=== PATIENT | female | born 1985 | race Caucasian/White ===

== ENCOUNTER 2016-07-04 23:35 | Emergency (ER) | payer MEDICAID ==
[~2016-07-04] VITALS: Ht 165.1 cm; Wt 71.7 kg
[~2016-07-04 23:35] MED LIST: CEFDINIR 300MG300 MG PO; FERROUS SULFAT325 M2 PO; KEFLEX 500MG.500 MG PO; LEVAQUIN500 MG PO; MOTRIN 400MG.400 MG PO; PERCOCET 5/3251 EACH PO; PRENATAL1 TA2 PO; SEPTRA DS 800 M1 TAB PO; TESSALON PERLE100 M1 PO; [UNRECOGNIZED DRUG - REMARK] PO
--- OUTSIDE RECORDS SUMMARY | 2016-07-04 23:59 | External Medical Summary Rpt ---
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 MADY MADY T VISIT 15 MINUTES OFFICE 51066 [facility] OUTPATIEN 4 4 MADY MADY T VISIT 15 MINUTES OFFICE 41986 [facility] OUTPATIEN 4 4 MADY MADY T VISIT 5 MINUTES EMERGENCY 77793 FIDELIA SUTTON DEPT 4 4 MELODY MELODY VISIT HIGH SEVERITY& THREAT FUNCJ OFFICE 33834 [facility] OUTPATIEN 4 4 [facility]Y [facility]AD[facility] T VISIT 15 MINUTES HOSPITAL LUZ - 4 4 [facility] T OFFICE 23734 [facility] OUTPATIEN 4 4 MADY MADY T VISIT 15 MINUTES [facility]OSPITAL LUZ - 4 4 [facility] OUT[facility] INC T EMERGENCY 01928 FIDELIA SUTTON 4 4 MELODY MELODY DEPARTMEN T VISIT MODERATE SEVERITY OFFICE 90960 [facility] STILESE OUTPATIEN 4 4 MADY MADY T VISIT 40 MINUTES OFFICE 73610 [facility] T VISIT HLTH DEPT HLTH DEPT 15 TEJAS TEJAS MINUTES [facility]OSPITAL LUZ - 4 4 [facility] OUT[facility] T Emergency JUAN JOSÉ ROBERTO (ER) 3 15:40 3 15:58 [facility] LUZ - 3 3 [facility] OUTPATIEN INC T OFFICE 68448 LUZ ROLDAN 3 3 [facility] T VISIT INC 10 MINUTES EMERGENCY 04058 UDAY ROBERTO 3 3 [facility] DEPARTMEN SERVICES T VISIT LOW/MODER SEVERITY Emergency JUAN JOSÉ Sutton MD (ER) 3 19:59 3 21:50 [facility] EMERGENCY 38807 LUZ 3 3 [facility] DEPARTMEN INC T VISIT MODERATE SEVERITY EMERGENCY 78121 FIDELIA SUTTON 3 3 MELODY MELODY DEPARTMEN T VISIT HIGH/URGE NT SEVERITY HOSPITAL LUZ - 3 3 [facility] OUTPATIEN INC T Emergency JUAN JOSÉ SHARP MD (ER) 3 11:28 3 12:00 [facility] EMERGENCY 05189 ARON SHARP 3 [address] [facility] DEPARTMEN T VISIT HIGH/URGE NT SEVERITY EMERGENCY 18974 FIDELIA SUTTON 3 3 MELODY MELODY DEPARTMEN T VISIT HIGH/URGE NT SEVERITY HOSPITAL LUZ - 3 3 [facility] OUTPATIEN INC T OFFICE 11766 JOYCE COOK OUTPATIEN 3 3 STIVEN STIVEN T NEW 30 MINUTES OFFICE 57240 ISAAC GRAY OUTPATIEN 3 3 MADY MADY T VISIT 40 MINUTES OFFICE 24316 W[facility] OUTPATIEN 3 3 [facility] T VISIT DEPT DEPT 15 MINUTES OFFICE 38063 RIKY LAN OUTPATIEN 0 0 LARRY LARRY T NEW 45 MINUTES OFFICE 45355 [facility] DEPT 10 BANK ACCT MINUTES [facility] 9 9 [facility] T OFFICE 43851 [facility] T VISIT INTERNAL 15 MED MINUTES OFFICE 62742 [facility] 9 9 [facility] [place] [facility] T VISIT INTERNAL 15 MED MINUTES OFFICE 26365 DAVID AUGUSTIN, CONSULTAT [address] [facility] NEW/ESTAB N02 PATIENT 30 MIN EMERGENCY 90711 WU 8 8 CO [facility] T VISIT LIMITED/M INOR PROB EMERGENCY 76364 WU DIALLO, 8 8 [facility] T VISIT MODERATE SEVERITY HOSPITAL WU - 8 8 [facility] T OFFICE 10534 [facility] 8 8 [facility]IN[facility] T NEW 20 PSC MINUTES
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
--- OUTSIDE RECORDS SUMMARY | 2016-07-05 00:04 | External Medical Summary Rpt ---
Demographics Preferred Language [place] Leone[place] Marital Status Unknown Temple Affiliation Unknown Race Unknown Ethnic Group Unknown Author Author , Organization [employer] Address Unknown Phone Unavailable Purpose Continuity of Care Document - through 2016 Immunization No patient found.
--- OUTSIDE RECORDS SUMMARY | 2016-07-05 00:04 | External Medical Summary Rpt ---
Author Author [employer], [employer] Organization [employer] Address Unknown Phone Unavailable Results CHLAMYDIA AND GONORRHEA TESTING Observa Value Referen Units Interpr Notes Date tion ce etation Range COLLECT BLIND AIDE No No No No Nov 2 OR informa informa informa informa 2012 tion in tion in tion in tion in 9:00 AM source source source source data data data data ETHNICI WHITE, No No No No Nov 2 TY NON-HIS informa informa informa informa 2012 PANIC tion in tion in tion in tion in 9:00 AM source source source source data data data data KIT 2011-06 No No No No Nov 2 EXPIRAT -31 informa informa informa informa 2012 ION tion in tion in tion in tion in 9:00 AM DATE source source source source data data data data SYMPTOM NO No No No No Nov 2 S informa informa informa informa 2012 tion in tion in tion in tion in 9:00 AM source source source source data data data data REASON REVISIT No No No No Nov 2 FOR /ANNUAL informa informa informa informa 2012 REQUEST FAMILY tion in tion in tion in tion in 9:00 AM source source source source PLANNIN data data data data G VISIT SPECIME FEMALE No No No No Nov 2 N ENDOCER informa informa informa informa 2012 SOURCE VICAL tion in tion in tion in tion in 9:00 AM source source source source data data data data PREGNAN NO No No No No Nov 2 T informa informa informa informa 2012 tion in tion in tion in tion in 9:00 AM source source source source data data data data CHART [id number] No No No No Nov 2 NUMBER 27 informa informa informa informa 2012 tion in tion in tion in tion in 9:00 AM source source source source data data data data Chlamyd NEGATIV No No No NEGATIV Oct 2 ia E informa informa informa E 2012 trachom tion in tion in tion in RESULT= 9:00 AM atis source source source WITHIN rRNA data data data NORMAL [Presen ce] in LIMITSP Unspeci OSITIVE fied specime RESULT= n by Probe & ABNORMA target LEQUIVO NATALYA amplifi RESULT= cation method INDETER MINATEU NSATISF ACTORY RESULT= INVALID Neisser NEGATIV No No No NEGATIV Nov 23 ia E informa informa informa E 2012 gonorrh tion in tion in tion in RESULT= 9:00 AM oeae source source source WITHIN rRNA data data data NORMAL [Presen ce] in LIMITSP Unspeci OSITIVE fied specime RESULT= n by Probe & ABNORMA target LEQUIVO NATALYA amplifi RESULT= cation method INDETER MINATEU NSATISF ACTORY RESULT= INVALID THE APTIMA COMBO 2 ASSAY IS NOT INTENDE D FOR THE EVALUAT ION OF SUSPECT EDSEXUA L ABUSE OR FOR OTHER MEDICO- LEGAL INDICAT IONS. FOR THOSE PATIENT S FORWHOM A FALSE POSITIV E RESULT MAY HAVE ADVERSE PSYCHO- SOCIAL IMPACT, [facility] RET[facility]I NG.\.br \This report contain s patient informa tion that must be protect ed in accorda nce with the Health Insuran ce Portabi lity and Account ability Act. CHLAMYDIA AND GONORRHEA TESTING Observa Value Referen Units Interpr Notes Date tion ce etation Range COLLECT BLIND AIDE No No No No Nov 23 OR informa informa informa informa 2012 tion in tion in tion in tion in 9:00 AM source source source source data data data data ETHNICI WHITE, No No No No Nov 23 TY NON-HIS informa informa informa informa 2012 PANIC tion in tion in tion in tion in 9:00 AM source source source source data data data data KIT 2011-06 No No No No Nov 23 EXPIRAT -31 informa informa informa informa 2012 ION tion in tion in tion in tion in 9:00 AM DATE source source source source data data data data SYMPTOM NO No No No No Nov 23 S informa informa informa informa 2012 tion in tion in tion in tion in 9:00 AM source source source source data data data data REASON REVISIT No No No No Nov 23 FOR /ANNUAL informa informa informa informa 2012 REQUEST FAMILY tion in tion in tion in tion in 9:00 AM source source source source PLANNIN data data data data G VISIT SPECIME FEMALE No No No No Nov 2 N ENDOCER informa informa informa informa 2012 SOURCE VICAL tion in tion in tion in tion in 9:00 AM source source source source data data data data PREGNAN NO No No No No Nov 2 T informa informa informa informa 2012 tion in tion in tion in tion in 9:00 AM source source source source data data data data CHART [id number] No No No No Nov 23 NUMBER 27 informa informa informa informa 2012 tion in tion in tion in tion in 9:00 AM source source source source data data data data Chlamyd Pending No No No No Nov 23 ia informa informa informa informa 2012 trachom tion in tion in tion in tion in 9:00 AM atis source source source source rRNA data data data data [Presen ce] in Unspeci fied specime n by Probe & target amplifi cation method Neisser Pending No No No \.br\Nov 23 ia informa informa informa is 2012 gonorrh tion in tion in tion in report 9:00 AM oeae source source source contain rRNA data data data s [Presen patient ce] in Unspeci informa fied tion specime that n by must be Probe & target protect ed in amplifi accorda cation nce method with the Health Insuran ce Portabi lity and Account ability Act.
--- OUTSIDE RECORDS SUMMARY | 2016-07-05 00:04 | External Medical Summary Rpt ---
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 CHLAMYDIA AND GONORRHEA TESTING Observa Value Referen Units Interpr Notes Date tion ce etation Range COLLECT PEARL TECHNICIAN No No No No Nov 23 OR [...] source source data data data data CHART [id number] No No No No Nov 23 NUMBER [...]
--- OUTSIDE RECORDS SUMMARY | 2016-07-05 00:04 | External Medical Summary Rpt ---
Demographics Preferred Language Surinamese Marital Status Unknown Orthodox Affiliation Unknown Race Unknown Ethnic Group Unknown Author Author , Organization [employer] Address Unknown Phone Unavailable Purpose Continuity of Care Document - through 2016 Immunization No patient found.
--- NOTE | 2016-07-05 00:20 | Emergency Room Report ---
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 N Clinical Suspician of Infection? N Mental Status: 1 - Regular (Normal Baseline) Sepsis Risk:Low Sepsis Risk Have you (or family members/close friends) recently traveled outside the [place]? N If Yes, where/when: Have you had exposure to infectious disease within the past month? N TB? Other? Specify: Source patient, RN notes reviewed, old records Exam Limitations no limitations Comment atraumatic lt upper ext parasthesia - over the last 24 hrs - pt with no trauma or overuse and no other neuro sx Cardiac Chest Pain Chest pain indicative of cardiac No Timing/Duration this evening Severity moderate ALLERGIES Coded Allergies: morphine (Intermediate, I-HIVES 01/22/16) promethazine (From PHENERGAN) (Intermediate, PARNOID 01/22/16) Home Medications Reported Medications No Known Home Medications History Medical History General CAD? No Angina: No OR: No Hypertension? No Hyperlipidemia? No CHF? No DVT? No PE? No COPD? No Asthma? No Anemia? No GERD? No Gastric ulcers? No GI Bleed? No Hernia? No Thyroid Problems? No Hypothyroidism? No CVA? No Seizures? Yes Diabetes? No Renal Insuffiency? No End Stage Renal Disease? No UTI? No Stones? No BPH? No GB Disease: Yes Nephritic Syndrome? No Asplenia? No Hepatitis? No Sickle Cell Disease? No Arthritis? No Migraines? No Cataracts? No Glaucoma? No MRSA? No HIV? No TB? No Anxiety? Yes Depression? Yes Cancer? No More? Yes Additional hx: HYPOTENSION Immunization Hx DT/Tetanus 10/31/12 Flu Refused Pneumonia Refuses Surgical Hx Previous Surgery?Y X3 ZARA GALLBLADDER REMOVED D AND C RN ACLS Hx LMP 1-6 Days Ago Family History Family Hx Diabetes No CAD No Hypertension No Hyperlipidemia No Cancer Yes TB Yes Social History Smoking Hx Smoker: Current Every Day Smoker Tobacco: Yes Type Cigarettes Packs/day < 1 Pack Alcohol Alcohol: No Drugs none Additionial History Additional History no true arthralgia Review of Systems All Other Systems Reviewed and Negative Constitutional denies fever Eyes denies drainage ENT denies: ear pain, epistaxis, throat pain. Respiratory denies cough, denies shortness of breath, denies wheezing Cardiovascular denies chest pain, denies palpitations, denies syncope Gastrointestinal denies abdominal pain, denies diarrhea, denies vomiting Genitourinary denies: dysuria, frequency, hesitancy, hematuria. Musculoskeletal see HPI, denies back pain, joint pain, denies joint swelling, denies neck pain Skin denies rash Psychiatric/Neurological denies headache, denies seizure Physical Exam Vital Signs Vital Signs Date Time Temp Pulse Resp B/P Pulse O2 O2 Flow FiO2 Ox Delivery Rate 07/05 0026 98.5 82 20 104/66 100 07/04 2342 98.5 82 20 119/74 98 - WBC >12,000 or <4,000 or 10% bands? 2 or more SIRS Criteria Met? B/P:104/66 MAP:89 Creatinine >2.0? UA output<0.5ml/kg/hr for 2 hrs? Platelet count >100,000? Lactate >2.0mmol/1? INR >1.2 or PTT > than 60 sec? Evidence of Organ Dysfunction? Provider documented clinical suspician of infection? N Sepsis Criteria Count: 1 Sepsis Risk: Low Sepsis Risk General Appearance no apparent distress Eye Exam - bilateral eye PERRL, bilateral eye EOMI Ear, Nose, Throat normal ENT inspection Neck supple Respiratory Status No: respiratory distress. 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 No Results/Orders Current Medication Orders Sig/Rosibel Start time Last Medication Dose Route Stop Time Status Admin Prednisone 40 MG ONCE ONE 07/05 44 DC PO 07/05 45 Prednisone 0 .STK-MED ONE 07/05 42 DC .ROUTE Orders Procedure Date/time Status URINE 07/05 0020 Complete Departure Departure Time of Disposition 0041 Disposition DC Home or Self Care(routine) Clinical Impression Primary Impression: Upper extremity neuropathy Qualifiers: Laterality: left Qualified Code: G56.92 - Unspecified mononeuropathy of left upper limb Condition STABLE Patient Instructions Peripheral Neuropathy Additional Instructions use meds and see pcp for follow up Discharge Counseling Counseled pt/family regarding diagnosis, test results, medications/RX, follow up needs Prescriptions Current Visit Scripts Prednisone (Prednisone 20MG) 20 MG PO BID #10 TAB ED Critical Care Critical Care No at 0050
--- NOTE | 2016-07-05 00:20 | Emergency Room Report ---
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 N Clinical Suspician of Infection? N Mental Status: 1 - Regular (Normal Baseline) Sepsis Risk:Low Sepsis Risk Have you (or family members/close friends) recently traveled outside the [place]? N If Yes, where/when: Have you had exposure to infectious disease within the past month? N TB? Other? Specify: Source patient, RN notes reviewed, old records Exam Limitations no limitations Comment atraumatic lt upper ext parasthesia - over the last 24 hrs - pt with no trauma or overuse and no other neuro sx Cardiac Chest Pain Chest pain indicative of cardiac No Timing/Duration this evening Severity moderate ALLERGIES Coded Allergies: morphine (Intermediate, I-HIVES 01/22/16) promethazine (From PHENERGAN) (Intermediate, PARNOID 01/22/16) Home Medications Reported Medications No Known Home Medications History Medical History General CAD? No Angina: No PR: No Hypertension? No Hyperlipidemia? No CHF? No DVT? No PE? No COPD? No Asthma? No Anemia? No GERD? No Gastric ulcers? No GI Bleed? No Hernia? No Thyroid Problems? No Hypothyroidism? No CVA? No Seizures? Yes Diabetes? No Renal Insuffiency? No End Stage Renal Disease? No UTI? No Stones? No BPH? No GB Disease: Yes Nephritic Syndrome? No Asplenia? No Hepatitis? No Sickle Cell Disease? No Arthritis? No Migraines? No Cataracts? No Glaucoma? No MRSA? No HIV? No TB? No Anxiety? Yes Depression? Yes Cancer? No More? Yes Additional hx: HYPOTENSION Immunization Hx DT/Tetanus 10/31/12 Flu Refused Pneumonia Refuses Surgical Hx Previous Surgery?Y X3 ZARA GALLBLADDER REMOVED D AND C PLASTICS FITTER Hx LMP 1-6 Days Ago Family History Family Hx Diabetes No CAD No Hypertension No Hyperlipidemia No Cancer Yes TB Yes Social History Smoking Hx Smoker: Current Every Day Smoker Tobacco: Yes Type Cigarettes Packs/day < 1 Pack Alcohol Alcohol: No Drugs none Additionial History Additional History no true arthralgia Review of Systems All Other Systems Reviewed and Negative Constitutional denies fever Eyes denies drainage ENT denies: ear pain, epistaxis, throat pain. Respiratory denies cough, denies shortness of breath, denies wheezing Cardiovascular denies chest pain, denies palpitations, denies syncope Gastrointestinal denies abdominal pain, denies diarrhea, denies vomiting Genitourinary denies: dysuria, frequency, hesitancy, hematuria. Musculoskeletal see HPI, denies back pain, joint pain, denies joint swelling, denies neck pain Skin denies rash Psychiatric/Neurological denies headache, denies seizure Physical Exam Vital Signs Vital Signs Date Time Temp Pulse Resp B/P Pulse O2 O2 Flow FiO2 Ox Delivery Rate 07/05 0026 98.5 82 20 104/66 100 07/04 2342 98.5 82 20 119/74 98 - WBC >12,000 or <4,000 or 10% bands? 2 or more SIRS Criteria Met? B/P:104/66 MAP:89 Creatinine >2.0? UA output<0.5ml/kg/hr for 2 hrs? Platelet count >100,000? Lactate >2.0mmol/1? INR >1.2 or PTT > than 60 sec? Evidence of Organ Dysfunction? Provider documented clinical suspician of infection? N Sepsis Criteria Count: 1 Sepsis Risk: Low Sepsis Risk General Appearance no apparent distress Eye Exam - bilateral eye PERRL, bilateral eye EOMI Ear, Nose, Throat normal ENT inspection Neck supple Respiratory Status No: respiratory distress. 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 No Results/Orders Current Medication Orders Sig/Rosibel Start time Last Medication Dose Route Stop Time Status Admin Prednisone 40 MG ONCE ONE 07/05 44 DC PO 07/05 45 Prednisone 0 .STK-MED ONE 07/05 42 DC .ROUTE Orders Procedure Date/time Status URINE 07/05 0020 Complete Departure Departure Time of Disposition 0041 Disposition DC Home or Self Care(routine) Clinical Impression Primary Impression: Upper extremity neuropathy Qualifiers: Laterality: left Qualified Code: G56.92 - Unspecified mononeuropathy of left upper limb Condition STABLE Patient Instructions Peripheral Neuropathy Additional Instructions use meds and see pcp for follow up Discharge Counseling Counseled pt/family regarding diagnosis, test results, medications/RX, follow up needs Prescriptions Current Visit Scripts Prednisone (Prednisone 20MG) 20 MG PO BID #10 TAB ED Critical Care Critical Care No at 0050
[2016-07-05] MEDS ORDERED: PREDNISONE 20MG20 MG PO (00:46)
[2016-07-05 00:55] VITALS: BP 106/70
== END 2016-07-05 00:57 | disposition home or self-care (01) ==
LOC: ER 23:35
DX: G56.92 Unspecified mononeuropathy of left upper limb (principal); F41.8 Other specified anxiety disorders; Z72.0 Tobacco use